=== PATIENT | male | born 1950 | race Asian ===

== ENCOUNTER 2019-11-16 22:17 | Emergency (ER) | payer OTHER ==
[~2019-11-16] VITALS: Ht 165.1 cm; Wt 161.5 kg
[2019-11-16 23:03] LABS: PLATELET COUNT 130 K/uL (142-355)
[2019-11-16 23:12] LABS: POTASSIUM 4.6 mmol/L (3.6-5.2)
[2019-11-16 23:54] VITALS: BP 118/81; TEMP 98.3
[2019-11-17] MEDS ORDERED: DIOVAN40 MG PO (00:52)
[2019-11-17] MEDS ORDERED: BIOTENE DRY MOUTH OR MT (00:52)
[2019-11-17] MEDS ORDERED: POT CL MICRO20 MEQ PO (00:53)
[2019-11-17] MEDS ORDERED: AMLO2.5T PO (00:54)
[2019-11-17] MEDS ORDERED: CRANBERRY200 MG PO (00:54)
[2019-11-17] MEDS ORDERED: PANTOPRAZOLE 40MG TA PO (00:54)
[2019-11-17] MEDS ORDERED: CLOPIDOGREL75 MG PO (00:55)
[2019-11-17] MEDS ORDERED: ASPIR-8181 MG PO (00:55)
[2019-11-17] MEDS ORDERED: GRALISE600 MG PO (00:56)
[2019-11-17] MEDS ORDERED: FURO20TA67 PO (00:57)
[2019-11-17] MEDS ORDERED: OXCARBAZEPIN150 MG PO (00:58)
[2019-11-17] MEDS ORDERED: TROSPIUM CL20 MG PO (00:58)
[2019-11-17] MEDS ORDERED: TOPIRAMATE25 M1 PO (00:59)
[2019-11-17] MEDS ORDERED: METOPROLOL25 M1 PO (01:00)
[2019-11-17] MEDS ORDERED: IRON325 MG PO (01:00)
[2019-11-17] MEDS ORDERED: NORTRIPTYLIN25 MG PO (01:01)
[2019-11-17] MEDS ORDERED: QUETIAPINE300 MG PO (01:01)
[2019-11-17] MEDS ORDERED: TRAZ50TA36 PO (01:02)
[2019-11-17] MEDS ORDERED: MINIPRESS2 MG PO (01:02)
[2019-11-17] MEDS ORDERED: MELATONIN3 MG PO (01:03)
[2019-11-17] MEDS ORDERED: ALPR0.2566 PO (01:03)
[2019-11-17] MEDS ORDERED: SERT100T PO (01:04)
[2019-11-17] MEDS ORDERED: LAMICTAL100 MG PO (01:05)
[2019-11-17] MEDS ORDERED: CAPS0.024 TOP (01:07)
[2019-11-17] MEDS ORDERED: ALBU90AE13 INH (01:10)
[2019-11-17] MEDS ORDERED: FURO40TA93 PO (01:10)
== END 2019-11-16 23:54 | disposition other institution (70) ==
LOC: ED 22:17
PROVIDERS: Emergency Medicine Emergency Medical Services
DX: F03.91 Unspecified dementia, unspecified severity, with behavioral disturbance (principal); F31.89 Other bipolar disorder; Z11.59 Encounter for screening for other viral diseases; Z04.6 Encounter for general psychiatric examination, requested by authority
CPT/HCPCS: 36415; 80053; 85027; 87635; 93005; 99283; G2023; U00003